=== PATIENT | female | born 1965 | race Caucasian/White ===

== ENCOUNTER 2016-08-09 18:20 | Inpatient (IN) | payer OTHER ==
--- NOTE | ~2016-08-09 | DS ---
Discharge Summary [address] [place]. [address] NAME: BRITTNY PISANO : 67 STATUS : DIS IN PAT#: [id number] AGE: 51 ADM/REG DATE : 08/09/16 MR#: [id number] REPORT SERV DATE: 08/12/16 DICTATED BY: PRECIOUS MAIN DATE: 08/11/16 REPORT STATUS : Draft TRANSCRIBED BY: MODL DATE: 08/11/16 ADMISSION DATE: 08/09/2016 DISCHARGE DATE: 08/11/2016 DISCHARGE DIAGNOSES: 1. Non-small cell lung cancer, new diagnosis. 2. Left pleural effusion. 3. Chronic obstructive pulmonary disease. 4. Possible postobstructive pneumonitis. 5. Tobacco dependence. 6. Chest pain, pleuritic with pain controlled with oral medications. 7. Anxiety due to new diagnosis. CONSULTATIONS: 1. Pulmonology, Dr. Marquis Way. 2. Oncology, Dr. Leonard Padgett. PROCEDURES AND IMAGIN. CT of the chest, 08/06/2016. Impression: Bulky mediastinal and hilar adenopathy with left upper lobe collapse with obstruction from the left upper lobe bronchus consistent with primary lung cancer. Recommend Interventional Pulmonology for bronchoscopy and/or EBUS. Small to moderate left pleural effusion with left pleural enhancement suspicious for pleural metastatic disease. 2. Chest x-ray, 08/10/2016. Impression: Stable appearance of chest compared to previous with left upper lobe consolidation/mass. No evidence of pneumothorax or pneumomediastinum after endobronchial ultrasound. 3. EGD/Thoracentesis, 08/10/[address] Impression: Positive for non-small cell lung cancer. Left thoracentesis, 1100 mL of serosanguineous fluid removed. Not a stick candidate. HOSPITAL COURSE: Please refer to history and physical dictated on 08/06/2016 by Hospitalist Services. This patient is a 51-year-old female with history of heavy smoking likely COPD, was evaluated in the emergency room for complaints of chest pain. The patient's pain was pleuritic in nature. Additional imaging was obtained which noted possible mass. The patient did undergo above procedure which was noted removing 1100 mL of serosanguineous fluid. The patient was then consulted to see Oncology. The patient was evaluated by Oncology and will be followed up outpatient. PET-CT within three days. The patient will follow up with Dr. Dunlap within seven days. MRI of the brain was obtained prior to discharge. The patient has had complaints of anxiety, given Xanax in the hospital, but will be discharged home with Ativan 0.5 mg one every 12 hours as needed p.r.n. The patient will also be given hydrocodone p.r.n. for pain. DISCHARGE MEDICATIONS: 1. Multivitamin over the counter. Discharge Summary [address] [address] NAME: BRITTNY PISANO : 67 STATUS : DIS IN PAT#: [id number] AGE: 51 ADM/REG DATE : 08/09/16 MR#: [id number] REPORT SERV DATE: 08/12/16 DICTATED BY: PRECIOUS MAIN DATE: 08/11/16 REPORT STATUS : Draft TRANSCRIBED BY: DANTE DATE: 08/11/16 2. Nicotine transdermal patch over the counter. 3. Acetaminophen 325 mg over the counter. 4. Colace 100 mg one twice daily p.r.n. over the counter. 5. Ativan 0.5 mg p.o. every 12 hours p.r.n. for anxiety, #10. 6. Hydrocodone 10/325 mg one p.o. every 8 hours p.r.n. for pain. 7. Augmentin 875 mg one p.o. every 12 hours x2 days. This patient is being discharged home in hemodynamically stable condition. The pain is controlled with the above medications. She will follow up with Oncology to review MRI of the brain. This discharge took greater than 30 minutes. /DANTE Precious Main NP / [id number] CC: Paul Moses MD
--- NOTE | ~2016-08-09 | EGD ---
EGD REPORT [facility] [address] [address] NAME: CAROLYNE RUIZ : 67 STATUS : ADM IN PAT#: [id number] AGE: 51 ADM/REG DATE : 08/09/16 MR#: [id number] REPORT SERV DATE: 08/10/16 DICTATED BY: ZULMA MCCULLOUGH DATE: 08/10/16 REPORT STATUS : Draft [facility]: [facility] DATE: 08/10/16 Pulmonology Patient Name: Carolyne Ruiz Procedure Date: 08/10/2016 9:51 AM Date of : 1965 Attending MD: DOROTHEA MCCULLOUGH MD Procedure Date No Time: 08/10/2016 Procedure: EBUS and thoracentesis Indications: Left pleural effusion, FITO obstruction vs mucus plugging or endobronchial tumor. Weight loss, Tobacco Abuse Providers: DOROTHEA MCCULLOUGH MD Referring MD: JENNIFER ALONZO MD Medicines: Lidocaine 2% 20 mL Complications: No immediate complications Procedure: Pre-Anesthesia Assessment: - ASA Grade Assessment: III - A patient with severe systemic disease. - A History and Physical has been performed. Patient meds and allergies have been reviewed. The risks and benefits of the procedure and the sedation options and risks were discussed with the patient. All questions were answered and informed consent was obtained. Patient identification and proposed procedure were verified prior to the procedure by the physician and the nurse in the pre-procedure area in the procedure room. Mental Status Examination: alert and oriented. Airway Examination: normal oropharyngeal airway. Respiratory Examination: poor air movement and decreased breathe sounds at right base, but otherwise clear. CV Examination: normal and RRR, no murmurs, no S3 or S4. ASA Grade Assessment: IV - A patient with severe systemic disease that is a constant threat to life. After reviewing the risks and benefits, the patient was deemed in satisfactory condition to undergo the procedure. The anesthesia plan was to use general anesthesia. Immediately prior to administration of medications, the patient was re-assessed for adequacy to receive sedatives. The heart rate, respiratory rate, oxygen saturations, blood pressure, adequacy of pulmonary ventilation, and response to care were monitored throughout the procedure. The physical status of the patient was re-assessed after the procedure. After obtaining informed consent, the Bronchoscope was introduced through the mouth, via the endotracheal tube (the patient was intubated for the procedure) and EGD REPORT [id number] [facility] [place]. [address] NAME: CAROLYNE RUIZ : 67 STATUS : ADM IN [facility]#: [id number] AGE: 51 ADM/REG DATE : 08/09/16 MR#: [id number] REPORT SERV DATE: 08/10/16 DICTATED BY: ZULMA MCCULLOUGH DATE: 08/10/16 REPORT STATUS : Draft TRANSCRIBED BY: [facility] DATE: 08/10/16 advanced to the tracheobronchial tree. the Bronchoscope was introduced through the mouth, via the endotracheal tube (the patient was intubated for the procedure) and advanced to the tracheobronchial tree. The procedure was accomplished without difficulty. The patient tolerated the procedure well. Findings: Ultrasound Guided Left thoracentesis The patient was placed in the appropriate position. Ultrasound survey of the left chest was performed with identification of pleural fluid and surrounding structures including the diaphragm and lung tissue. Ultrasound image interpretation: The depth to the chest wall is approximately 2 cms. The depth of the pocket is approximately 9 cms. Ultrasound images were permanently documented. The site of entry was marked using ultrasound guidance. After donning cap, mask, sterile gown and gloves, the patient was prepped with chlorhexadine and drapped. 10 ccs of 2% lidocaine with epinephrine 1:100,000 was used to numb the region. A finder needle was then used to locate fluid with aspiration of serous fluid. A small incision was performed at insertion site and a temporary 8 Danish pleural catheter was inserted over a needle. The catheter was attached to a suction device (vacuum bottle) and 1100 mls of serosanguinous fluid was removed. EBUS Bronchoscopy The endotracheal tube is in good position. The visualized portion of the trachea is of normal caliber. The gregory is sharp. The tracheobronchial tree was examined to at least the first subsegmental level. Extrinsic and intrinsic invasion of the distal left mainstem. Unable to stent this location due to anatomic restrictions. EBUS TBNA of lymph node level 11R x 4 passes for cytology EBUS TBNA of lymph node level 7 x 4 passes for cytology EBUS TBNA of left lung mass x 6 passes for cytology Brushings were obtained in the left mainstem bronchus of the lung and sent for routine cytology. One sample was obtained. Bronchoalveolar lavage was performed in the left upper lobe of the lung and sent for routine cytology. 60 mL of fluid were instilled. 20 mL were returned. The return was blood-tinged and cellular. An endobronchial biopsy was performed in the left mainstem bronchus of the lung using a forceps and sent for histopathology examination. One sample was obtained. The FiO2 was then lowered to less than 40% and argon plasma coagulation therapy (0.8 L/min, 15 Blanca) was performed for destruction of tumor tissue at the distal left mainstem and hemostasis. Impression: Rapid On-Site Evaluation (RAOUL): Preliminary cytology is POSITIVE for NON SMALL CELL LUNG CANCER (final results are pending). Left thoracentesis: 1100 mls of serosanguinous fluid EGD REPORT [address] [address] NAME: CAROLYNE RUIZ : 67 STATUS : ADM IN [facility]#: [id number] AGE: 51 ADM/REG DATE : 08/09/16 MR#: [id number] REPORT SERV DATE: 08/10/16 DICTATED BY: ZULMA MCCULLOUGH DATE: 08/10/16 REPORT STATUS : Draft TRANSCRIBED BY: [employer] DATE: 08/10/16 was removed. Not a stent candidate. Recommendation: - Await test results. - Chest X-ray post-procedure. - Follow up with Pulmonary team tomorrow - Consult Med Onc - MRI of the brain with and without - Outpatient PET CT - If pleural effusion rapidly reoccurs and she has metastatic disease, she is an appropriate pleurX catheter patient. - Nurse Navigator - [employer] [facility] [employer] Attending Participation: I personally performed the entire procedure. DOROTHEA MCCULLOUGH MD 08/10/2016 10:48 AM This report has been signed electronically. Number of Addenda: 0 Note Initiated On: 08/10/2016 9:51 AM [address] [address]
[~2016-08-09 18:20] MED LIST: *DENIES; LORTAB 5 PO; METPAKSF PO
[2016-08-10 05:10] LABS: BASOPHILS 0.1 %; BASOPHILS ABSOLUTE 0.01 10/3/uL (0.0-0.16); EOSINOPHILS 1.3 %; EOSINOPHILS ABSOLUTE 0.09 10/3/uL (0.0-0.53); HEMOGLOBIN 11.3 g/dL (12.0-16.0); IMMATURE GRANULOCYTES 0.1 %; IMMATURE GRANULOCYTES ABSOLUTE 0.01 10/3/uL (0.0-0.11); LYMPHOCYTES 25.1 %; LYMPHOCYTES ABSOLUTE 1.78 10/3/uL (0.67-4.30); MEAN CORPUS HGB CONC 33.2 g/dL (32.0-36.0); MEAN CORPUSCULAR HEMOGLOB 29.7 pg (26.0-34.0); MEAN CORPUSCULAR VOLUME 89.2 fL (80-100); MEAN PLATELET VOLUME 9.2 fL (9.2-13.0); MONOCYTES 8.6 %; MONOCYTES ABSOLUTE 0.61 10/3/uL (0.21-1.20); NEUTROPHILS 64.8 %; NEUTROPHILS ABSOLUTE 4.58 10/3/uL (2.02-8.40); PLATELET COUNT 230 10/3/uL (150-400); RBC DISTRIBUTION WIDTH 13.6 % (12.0-16.0); RED CELL COUNT 3.81 10/6/uL (4.0-5.6); WHITE BLOOD CELLS 7.1 10/3/uL (4.5-10.5)
[2016-08-10 05:15] LABS: INTERNATIONAL NORMAL RATI 1.2 UNITS (-); PARTIAL THROMBO TIME 34.4 SEC (22.5-37.2); PROTIME (NOT ORD) 15.5 SEC (12.0-14.5)
[2016-08-10 05:25] LABS: MANUAL DIFF NO %
[2016-08-10 05:27] LABS: ALBUMIN 2.6 G/DL (3.5-5.0); CALCIUM, SERUM 8.1 MG/DL (8.5-10.4); CHLORIDE, SERUM 109 MMOL/L (96-112); CO2 (CARBON DIOXIDE) 25 MMOL/L (24-34); CREATININE 0.72 MG/DL (0.55-1.02); GFR AFRICAN AMERICAN 113 ML/MIN (>=60); GFR NON AFRICAN AMERICAN 98 ML/MIN (>=60); GLUCOSE, SERUM 94 MG/DL (60-99); PHOSPHORUS, SERUM 3.5 MG/DL (2.5-4.5); POTASSIUM, SERUM 3.9 MMOL/L (3.5-5.3); SODIUM, SERUM 143 MMOL/L (135-148)
[2016-08-10 05:31] LABS: BUN (BLOOD UREA NITROGEN) 6 MG/DL (6-23)
[2016-08-10 11:46] LABS: INSTRUMENT SERIAL # 35151; OPERATOR ID 14472; SAMPLE PLR; pH 7.44 (7.37-7.43)
[2016-08-10 13:24] LABS: BD FL SOURCE (NOT ORD) LUL
[2016-08-10 13:34] LABS: GLUCOSE BODY FL (NOT ORD) 78 MG/DL; LDH BODY FLUID (NOT ORD) 579 U/L; PROTEIN BODY FLUID 3.4 G/DL
[2016-08-10 13:38] LABS: BF TOTAL CELL CT (NOT ORD 984 /MM3; BODY FLUID RBC (NOT ORD) 4950 /MM3
[2016-08-10 14:07] LABS: BD FL SOURCE (NOT ORD) BAL; BODY FLUID RBC (NOT ORD) 112000 /MM3
[2016-08-10 14:11] LABS: BF BASO (NOT OF) 0 %
[2016-08-10 14:12] LABS: BD FL LYMPH (NOT ORD) 71 %; BODY FLUID SEG (NOT ORD) 0 %
[2016-08-10 14:13] LABS: BF LARGE MONONUCLEAR 29 %; BODY FLUID EOS (NOT ORD) 0 %
[2016-08-10 14:15] LABS: BD FL LYMPH (NOT ORD) 2 %; BF TOTAL CELL CT (NOT ORD 308 /MM3; BODY FLUID EOS (NOT ORD) 4 %; BODY FLUID SEG (NOT ORD) 63 %
[2016-08-10 14:16] LABS: BF LARGE MONONUCLEAR 27 %
[2016-08-10 16:30] LABS: BD FL SOURCE (NOT ORD) LEFT PLEURAL FLUID
[2016-08-11] MEDS ORDERED: HABIT21 TOP (14:44)
[2016-08-11] MEDS ORDERED: MUCINEX1200 MG PO (14:44)
[2016-08-11] MEDS ORDERED: MULTIPLE VIT PO (14:44)
[2016-08-11] MEDS ORDERED: DSS PO (14:45)
[2016-08-11] MEDS ORDERED: T PO (14:45)
[2016-08-11] MEDS ORDERED: ATV.5 PO (14:46)
[2016-08-11] MEDS ORDERED: NORCO1 TAB PO (14:46)
[2016-08-11] MEDS ORDERED: AUG875 PO (14:47)
[2016-09-24] MEDS ORDERED: DSS PO (02:53)
== END 2016-08-11 16:51 | disposition home or self-care (01) | DRG 166 ==
LOC: 4EA 18:20
PROVIDERS: Internal Medicine
PROC: 0W9B3ZZ Drainage of Left Pleural Cavity, Percutaneous Approach (ICD-10-PCS; principal; 2016-08-09)
PROC: 07B74ZX Excision of Thorax Lymphatic, Percutaneous Endoscopic Approach, Diagnostic (ICD-10-PCS; 2016-08-09)
DX: C34.90 Malignant neoplasm of unspecified part of unspecified bronchus or lung (principal); J18.9 Pneumonia, unspecified organism; J90 Pleural effusion, not elsewhere classified; J44.9 Chronic obstructive pulmonary disease, unspecified; F17.210 Nicotine dependence, cigarettes, uncomplicated; F41.9 Anxiety disorder, unspecified
CPT/HCPCS: 70553; 71010; 80069; 82805; 82945; 83615; 83986; 84157; 85025; 85610; 85730; 87015; 87070; 87102; 87116; 87205; 88112; 88172; 88173; 88305; 88333; 89051; 93005; 94640; A9270-GY; A9577; C1725; J2250; J2405; J2543; J2710; J3010

== ENCOUNTER 2016-08-25 15:42 | Inpatient (IN) | payer OTHER ==
--- NOTE | ~2016-08-25 | HP ---
History And Physical [address] [place]. [address] NAME: BRITTNY PISANO : 67 STATUS : ADM IN [facility]#: [id number] AGE: 51 ADM/REG DATE : 08/25/16 MR#: [id number] REPORT SERV DATE: 08/25/16 DICTATED BY: JASON LOZANO DATE: 08/25/16 REPORT STATUS : Draft TRANSCRIBED BY: MODL DATE: 08/25/16 DATE OF ADMISSION: 08/25/2016 CHIEF COMPLAINT: A 51-year-old female with recently diagnosed metastatic lung cancer, now presenting with shortness of breath. HISTORY OF PRESENT ILLNESS: The patient's history was obtained through careful interview with the patient and daughter coupled with review of [facility] and [facility] medical records. The patient was diagnosed with metastatic lung cancer to mediastinal lymph nodes and to the pleural space in July 2016, followed by Dr. Dunlap. When she was first diagnosed, she also had a partial collapse of her left lung related to the cancer with pleural effusion that had to be drained with thoracentesis. Over the last week, the patient has had increasing shortness of breath, but over these last four days, she has been unable to lay down or sleep because of increasing and extreme orthopnea. She also suffers from dyspnea on exertion and a cough that is productive of a mild clear sputum. One of her main complaints has been extreme increasing back pain, felt in the left base of her lung in the back. She states "it is like a knife punching me in the back," 10/10 in severity, that is exacerbated by any kind of breathing or coughing at all. She has had no sinus drainage. She has had some lightheadedness and nausea, but no vomiting. No fevers or chills. No abdominal pain. No change of bowel or bladder habit. REVIEW OF SYSTEMS: Otherwise, a 14-point review of systems was obtained was negative. PAST MEDICAL HISTORY: 1. Lung cancer, diagnosed in July 2016, non-small cell with mediastinal lymphadenopathy and pleural space disease, followed by Dr. Dunlap. 2. Left pleural effusion, seen by Dr. Way. 3. COPD. 4. Anxiety. 5. Rectal polyps, seen by Dr. Leonard. 6. Nephrolithiasis. PAST SURGICAL HISTORY: 1. Cholecystectomy. 2. Tubal ligation. 3. Left ankle surgery. History And Physical [address] [place]. [address] NAME: BRITTNY PISANO : [birth year] STATUS : ADM IN PAT#: [id number] AGE: 51 ADM/REG DATE : 08/25/16 MR#: [id number] REPORT SERV DATE: 08/25/16 DICTATED BY: JASON LOZANO DATE: 08/25/16 REPORT STATUS : Draft TRANSCRIBED BY: DANTE DATE: 08/25/16 ALLERGIES: TRAMADOL. SOCIAL HISTORY: The patient is a smoker. No alcohol abuse. Lives with daughter, , has a 31-year-old son. FAMILY HISTORY: Mother of melanoma. Father of unknown cancer. Brother with heart disease. CURRENT MEDICATIONS: Include albuterol inhaler, folic acid, Roxicodone 10 mg every six hours as needed, and stool softener. PHYSICAL EXAMINATION: VITAL SIGNS: Temperature 98.0, pulse 102, blood pressure 172/87, respiratory rate 18, and O2 saturation 80% on room air and 94% on 4 liters nasal cannula. GENERAL: An ill-appearing female, in evidence of distress secondary to chest pain and shortness of breath. HEENT: Pupils are equal, round, and reactive to light. No conjunctival pallor. No scleral icterus. Nares are patent. Oropharynx is clear of obstruction. Moist mucous membranes. NECK: Trachea midline. No thyromegaly. LYMPH: No cervical lymphadenopathy. No supraclavicular lymphadenopathy. RESPIRATORY: The patient has absent breath sounds in the left lung with dullness to percussion up to the top of the lung consistent with a very large pleural effusion. She has scattered expiratory wheezes, prolonged expiratory phase, and a mildly labored respiratory effort, but is in no means distressed at this moment. CARDIOVASCULAR: Tachycardic. Regular rhythm. No murmurs, rubs, or gallops. No current extremity edema is appreciated. ABDOMEN: Soft, nontender, and nondistended. Normal bowel sounds auscultated throughout. No hepatosplenomegaly. DERMATOLOGICAL: Warm and dry extremities. No pallor. No cyanosis. PSYCHIATRIC: Normal affect. Good mood. Alert and oriented x3. LABORATORY DATA: White blood cell count 9.9, hemoglobin 12, hematocrit 36, and platelets 314. Sodium 134, potassium 4.4, chloride 95, bicarb 34, BUN 12, creatinine 0.78, and glucose 138. STUDIES: 1. Chest x-ray by my own evaluation shows an essential whiteout of the left lung with large left pleural effusion. There is also increasing chronic interstitial lung disease-like changes on the right side. 2. EKG by my own evaluation shows sinus rhythm, 98 beats per minute. No other major abnormalities. ASSESSMENT AND PLAN: 1. Hypoxic respiratory failure with saturating 80% on room air. Provide supportive care. 2. Large left pleural effusion from malignancy. Consult Dr. Way for PleurX catheter. 3. Lung cancer. Consult Dr. Dunlap, oncologist. History And Physical [address] [address] NAME: BRITTNY PISANO : 67 STATUS : ADM IN [facility]#: [id number] AGE: 51 ADM/REG DATE : 08/25/16 MR#: [id number] REPORT SERV DATE: 08/25/16 DICTATED BY: JASON LOZANO DATE: 08/25/16 REPORT STATUS : Draft TRANSCRIBED BY: DANTE DATE: 08/25/16 4. Chronic obstructive pulmonary disease. P.o. prednisone, Duo nebulizers. Counseled tobacco abstinence. 5. Extreme pleurisy. Place on IV Dilaudid pain management. KPL/MODL Jason Lozano M.D. / [id number] CC: MD Marquis Niño M.D. Benjamin R Nadeau, MD
--- NOTE | ~2016-08-25 | EGD ---
EGD REPORT [facility] [address] [address] NAME: CAROLYNE RUIZ : 67 STATUS : ADM IN PAT#: [id number] AGE: 51 ADM/REG DATE : 08/25/16 MR#: [id number] REPORT SERV DATE: 08/27/16 DICTATED BY: ZULMA MCCULLOUGH DATE: 08/27/16 REPORT STATUS : Draft [facility]: [facility] DATE: 08/27/16 Pulmonology Patient Name: Carolyne Ruiz Procedure Date: 08/27/2016 9:50 AM Date of : 1965 Attending MD: DOROTHEA MCCULLOUGH MD Procedure Date No Time: 08/27/2016 Procedure: Indwelling Tunnelled Cuffed Pleural Catheter Placement Indications: Left pleural effusion Providers: DOROTHEA MCCULLOUGH MD Referring MD: LEONARD MENDOZA Medicines: Intradermal lidocaine 2% with epinephrine 1:100,000 20 mls. See anesthesia record Complications: No immediate complications Procedure: Pre-Anesthesia Assessment: - A History and Physical has been performed. Patient meds and allergies have been reviewed. The risks and benefits of the procedure and the sedation options and risks were discussed with the patient. All questions were answered and informed consent was obtained. Patient identification and proposed procedure were verified prior to the procedure by the physician and the nurse in the pre-procedure area in the procedure room. Mental Status Examination: normal. Airway Examination: normal oropharyngeal airway. Respiratory Examination: decreased breathe sounds at left base, but otherwise clear. CV Examination: normal and RRR, no murmurs, no S3 or S4. ASA Grade Assessment: IV - A patient with severe systemic disease that is a constant threat to life. After reviewing the risks and benefits, the patient was deemed in satisfactory condition to undergo the procedure. The anesthesia plan was to use monitored anesthesia care (MAC). Immediately prior to administration of medications, the patient was re-assessed for adequacy to receive sedatives. The heart rate, respiratory rate, oxygen saturations, blood pressure, adequacy of pulmonary ventilation, and response to care were monitored throughout the procedure. The physical status of the patient was re-assessed after the procedure. Findings: After consent was obtained, a time out was performed. The patient was placed in the right lateral decubitus position with the ipsilateral arm above the patient's head. The patient was sedated by anesthesia and ultrasound survey was performed with identification of pleural fluid and surrounding structures including the diaphragm and lung tissue. EGD REPORT [address] [address] NAME: CAROLYNE RUIZ : 67 STATUS : ADM IN [facility]#: [id number] AGE: 51 ADM/REG DATE : 08/25/16 MR#: [id number] REPORT SERV DATE: 08/27/16 DICTATED BY: ZULMA MCCULLOUGH DATE: 08/27/16 REPORT STATUS : Draft TRANSCRIBED BY: Fresh [facility] DATE: 08/27/16 Ultrasound image interpretation: The depth to the chest wall is approximately 2 cms. The depth of the pocket is approximately 9 cms. Ultrasound images were permanently documented. The site of entry was marked using ultrasound guidance. After donning cap, mask, sterile gown and gloves, the patient was prepped with chlorhexadine and drapped. 10 ccs of 2% lidocaine with epinephrine 1:100,000 was used to numb the region. A finder needle was then used to locate fluid with aspiration of serous fluid. An angiocath sheath was inserted followed by guidewire placement. A small incision was performed at insertion site of the guide wire to expose the subcutaneous tissue. Then an additional 20 ccs of 2% lidocaine with epinephrine was used to numb the subcutanous tract and second incision site. A similar second incision was made approximately 5 cm below the initial incision. The pleural catheter was tunnelled in the usual manner. The trocar was inserted over the wire and the pleural catheter placed into pleural space. 1800 ccs of serous fluid was drained. The catheter was secured using 3.0 silk and a tegaderm dressing was applied. Impression: Left pleurX placed 1800 ccs of serous fluid was drained. Recommendation: 1. Post-procedure stat portable chest x-ray 2. Home health consultation 3. Case management consultation for discharge planning 4. [facility] nurse navigator consultation 5. Follow up with me in 10 to 14 days to remove stitches and inspect site. Attending Participation: I personally performed the entire procedure. DOROTHEA MCCULLOUGH MD 08/27/2016 2:09 PM This report has been signed electronically. Number of Addenda: 0 Note Initiated On: 08/27/2016 9:50 AM [address] [address]
--- NOTE | ~2016-08-25 | CN ---
Consultation Report [facility] [address] [place]. [address] NAME: CAROLYNE RUIZ : 67 STATUS : ADM IN PAT#: [id number] AGE: 51 ADM/REG DATE : 08/25/16 MR#: [id number] REPORT SERV DATE: 08/26/16 DICTATED BY: YOU RUTLEDGE DATE: 08/26/16 REPORT STATUS : Draft TRANSCRIBED BY: MODL DATE: 08/26/16 DATE OF CONSULTATION: 08/26/2016 CHIEF COMPLAINT: Shortness of breath and pleuritic pain in a patient with a left-sided pleural effusion. HISTORY OF PRESENT ILLNESS: Ms. Carolyne Ruiz is a pleasant 51-year-old white female with a past medical history significant for non-small cell lung cancer-adenocarcinoma, COPD, and probable malignant left pleural effusion, who presents to [facility] with complaints of worsening shortness of breath and pleuritic pain. It should be noted that Ms. Ruiz was hospitalized as recently as 08/11 when she was diagnosed with lung cancer. Ms. Ruiz has been seen by Dr. Marquis Way of Pulmonary Service. During this hospitalization, she was diagnosed with non-small cell lung cancer. The patient does not usually require supplemental oxygen. She is on no pulmonary medications. She continues to smoke cigarettes. She largely denies symptomatology related to obstructive sleep apnea. Her exercise tolerance has been quite limited as of late. Again, Ms. Ruiz was seen as recently as 08/10 when she underwent a procedure by Dr. Way. She had bronchoscopy with endobronchial ultrasound sampling, which demonstrated non small cell lung cancer. Final path was later resulted in adenocarcinoma. At the same time of the procedure, she also had a left thoracentesis that produced 1100 mL of serosanguineous fluid. The patient did eventually improve and transitioned home. She has been followed as an outpatient by Dr. Lucian Dunlap. She had undergone specific testing for EGFR as well as ALK mutations. She has also had PD-L1 workup. She has undergone a PET scan on 08/17/2016, which suggests left pleural metastasis. More recently, she has developed worsening shortness of breath and concomitant left-sided pleuritic pain. For the aforementioned reasons, she has been referred to the Pulmonary Service for further assessment. Upon arrival to the emergency room, she was noted to be hypertensive with a blood pressure of 172 systolic. She had a room air saturation of 80%. She was placed on supplemental oxygen with good improvement. Her initial blood work was fairly unremarkable with a white blood cell count of 9900 and preserved renal function. She did undergo a chest x-ray, which revealed a recurrent left pleural effusion. Currently, the patient's main pulmonary complaint is shortness of breath. This is worse on exertion and relieved by rest. She does have concomitant left-sided pleuritic pain. She denies any productive cough or purulent sputum. She denies any wheezing in her chest. She denies past pneumonias. She does have a diagnosis of COPD. The patient currently denies any murmurs, angina, or palpitations. She denies any orthopnea or paroxysmal nocturnal dyspnea. In regard to constitutional symptoms, she currently denies fever, chills, nausea, vomiting, Consultation Report [address] [place]. [address] NAME: CAROLYNE RUIZ : 67 STATUS : ADM IN [facility]#: [id number] AGE: 51 ADM/REG DATE : 08/25/16 MR#: [id number] REPORT SERV DATE: 08/26/16 DICTATED BY: YOU RUTLEDGE DATE: 08/26/16 REPORT STATUS : Draft TRANSCRIBED BY: DANTE DATE: 08/26/16 abdominal pain, or edema. PAST MEDICAL HISTORY: 1. Non-small cell lung espwfl-[id number]-[id number] 4. 2. COPD. 3. Tobacco dependency. 4. Anxiety. 5. Rectal polyps. 6. Nephrolithiasis. PAST SURGICAL HISTORY: 1. Cholecystectomy. 2. Tubal ligation. 3. Left ankle surgery. FAMILY HISTORY: The patient states her mother of melanoma. Her father had a cancer as well. She denies any known lung disease. SOCIAL HISTORY: The patient is not . She does have a daughter as well as a son. TOBACCO/ALCOHOL: As previously mentioned, the patient continues to smoke cigarettes up until the time of presentation. MEDICATIONS: 1. Albuterol. 2. Folic acid 1 mg. 3. Oxycodone 10 mg. ALLERGIES: PATIENT HAS A KNOWN ALLERGY TO TRAMADOL. REVIEW OF SYSTEMS: Complete review of systems was performed with pertinent positives and negatives contained within the body of the HPI. PHYSICAL EXAMINATION: VITAL SIGNS: Blood pressure is 134/89, heart rate is 93, T-max is 97.4, respiratory rate is 20, SpO2 is 98% on 2 L. GENERAL: The patient is a pleasant, well-nourished/well-developed female who is not currently exhibiting any signs of acute distress. Skin: Skin with appropriate texture and turgor. No rashes, lesions, or ulcers. Nails are clear without cyanosis or clubbing. HEENT: Head: Skull is normocephalic/atraumatic. Facies symmetric. No masses or lesions. Eyes: Sclera anicteric, conjunctiva pink without exudates. Extra ocular movements intact. Pupils are equal, round, reactive to light. Ears: Auricles and tragus without pain to palpation. Hearing is grossly intact. Consultation Report [place] [id number] [facility] [place]. [address] NAME: CAROLYNE RUIZ : 67 STATUS : ADM IN [facility]#: [id number] AGE: 51 ADM/REG DATE : 08/25/16 MR#: [id number] REPORT SERV DATE: 08/26/16 DICTATED BY: YOU RUTLEDGE DATE: 08/26/16 REPORT STATUS : Draft TRANSCRIBED BY: DANTE DATE: 08/26/16 Nose: Bilateral nasal patency. Sinuses without tenderness upon palpation. Throat: Dentition. Lips, oral mucosa, tongue, palate, and pharynx pink and moist without lesions. Uvula rises equally on phonation. Tongue midline without deviation. NECK: Neck supple. Trachea midline. No cervical lymphadenopathy appreciated. THORAX/LUNGS: Absent breath sounds in the left chest, dullness to percussion throughout on the left. CARDIOVASCULAR: Regular rate and rhythm. No murmurs, rubs, or gallops. Anterior chest without thrills, heaves, or lifts. ABDOMEN: Soft. Non-distended, non-tender. Active bowel sounds in all four quadrants. No hepatosplenomegaly noted. PERIPHERAL VASCULAR: No edema. No varicosities, stasis changes, open sores, ulcerations, or phlebitis. 2+ pulses in radial and dorsalis pedis. MUSCULOSKELETAL: Full AROM and PROM in all joints. No evidence of erythema, deformity, or crepitus. NEUROLOGIC: CN II - XII grossly intact. Good muscle bulk and tone bilaterally. Strength 5/5 throughout. PSYCHIATRIC: Patient demonstrates good judgment and insight. Pt is A&O x 3. ACCESSORY DATA: Reveals a white blood cell count 9100. PTT and PT/INR are 38.6, 15.2, 1.2. Procalcitonin is 0.32. Chest x-ray reveals a large left pleural effusion. IMPRESSION: 1. Non-small cell lung cancer, adenocarcinoma-stage 4. 2. Malignant pleural effusion. 3. Chronic obstructive pulmonary disease. 4. Tobacco dependency/complicated. PLAN: 1. The patient is being followed by the Oncology Service. 2. In regard to the patient's malignant pleural effusion, we will plan for PleurX catheter placement tomorrow under the care of Dr. Way. We will also sample this fluid for further tissue should Oncology pursue further molecular testing. 3. In regard to the patient's COPD, she has been placed on appropriate regimen of prednisone and nebulized medications. 4. In regard to the patient's tobacco dependency, we have counseled her greater than 10 minutes on the benefits of smoking cessation. The aforementioned impression and plan have been discussed with Dr. Dowd who will follow further recommendations. We thank you for this consult and look forward to participating in the care of Dr. Carolyne Ruiz. Consultation Report [address] [address] NAME: CAROLYNE RUIZ : 67 STATUS : ADM IN [facility]#: [id number] AGE: 51 ADM/REG DATE : 08/25/16 MR#: [id number] REPORT SERV DATE: 08/26/16 DICTATED BY: YOU RUTLEDGE DATE: 08/26/16 REPORT STATUS : Draft TRANSCRIBED BY: DANTE DATE: 08/26/16 ELENO/DANTE You Rutledge PA-C / [id number] CC: Ty Monterroso M.D. NO PCP
--- NOTE | ~2016-08-25 | DS ---
Discharge Summary [facility] [address] [place]. [address] NAME: BRITTNY PISANO : 67 STATUS : DIS IN PAT#: [id number] AGE: 51 ADM/REG DATE : 08/25/16 MR#: [id number] REPORT SERV DATE: 08/29/16 DICTATED BY: ANDREW ROBLEDO DATE: 08/28/16 REPORT STATUS : Draft TRANSCRIBED BY: MODL DATE: 08/28/16 ADMISSION DATE: 08/25/2016 DISCHARGE DATE: 08/28/2016 DISCHARGE DIAGNOSES: 1. Acute hypoxic respiratory failure. 2. Left pleural effusion that is malignant, status post a PleurX catheter placement that was performed on 08/27/2016. 3. Non-small cell lung cancer adenocarcinoma, stage IV. 4. Pleurisy and acute pain. 5. Tobacco use and history of chronic obstructive pulmonary disease. 6. Anxiety. 7. Sinus tachycardia. DISCHARGE MEDICATIONS: As follows: Folic acid 1 mg daily, Wellbutrin sustained release 150 mg p.o. twice a day, Spiriva 18 mcg one inhaled daily, metoprolol 12.5 mg p.o. twice a day, oxycodone 10 mg every six hours p.r.n. for pain, albuterol nebulizers every four hours p.r.n. for shortness of breath, stool softener daily, Dulera 200/5 mcg two puffs inhaled twice a day, and MS Contin 10 mg daily. HISTORY OF PRESENT ILLNESS: Pleasant, but unfortunate 51-year-old, white female, who presented to [facility] Emergency Room with complaints of progressive shortness of breath. Please see the initial H and P of Dr. Dale Hawkins. This patient was admitted to the hospitalist service for further evaluation and treatment. She was given aggressive nebulizer and oxygen therapy, and aggressive pain control. Lab work was ordered and followed. CONSULTS: During this admission include: [facility], Dr. Lucian Dunlap; pulmonology, Dr. Kris Ham and Dr. Way. PROCEDURES AND IMAGING: During this admission include: The left PleurX catheter placement as described, placed on 08/27/2016. HOSPITAL COURSE: I began seeing the patient on 08/26/2016, where she was still quite short of breath and dyspneic, but had improved with nebulizer treatments and oxygen therapy, and also steroids. I discussed at length with the patient, the need to stop smoking and to keep her followups with [facility] for initiation of chemotherapy. She agreed to try Wellbutrin to help her quit smoking, and this was initiated. She underwent the above described PleurX catheter placement, recovered well from that, and improved symptomatically, although she did continue to require oxygen. She had somewhat of a difficult disposition for approval on her PleurX drains, oxygen and home health, as she is self-pay with no insurance currently. We were able to give her two weeks of her PleurX drains. She was approved for oxygen therapy, and this will be delivered to her home, and her medicines were charitied for her as well. She has a followup with Dr. Lucian Dunlap, on Wednesday08/31/2016, and has been given the number for the nurse navigator and social media analyst through the cancer center to continue followup and need for supplies, particularly her PleurX Discharge Summary [address] [address] NAME: BRITTNY PISANO : 67 STATUS : DIS IN PAT#: [id number] AGE: 51 ADM/REG DATE : 08/25/16 MR#: [id number] REPORT SERV DATE: 08/29/16 DICTATED BY: ANDREW ROBLEDO DATE: 08/28/16 REPORT STATUS : Draft TRANSCRIBED BY: DANTE DATE: 08/28/16 drains. The patient was feeling better, was able to ambulate in the hallway, eating and drinking. Her pain was reasonably well controlled and so, she was discharged home with the above medication regimen, followup plan. She voiced agreement with the plan. Questions were answered at bedside. Please note, greater than 30 minutes were spent on this discharge, for medication teaching, followup planning, and further disposition. MILAN/DANTE Andrew Robledo NP / [id number] CC: Ty Monterroso M.D.
[~2016-08-25 15:42] MED LIST changes: +ATV.5 PO; +AUG875 PO; +DSS PO; +HABIT21 TOP; +MUCINEX1200 MG PO; +MULTIPLE VIT PO; +NORCO1 TAB PO; +T PO
[2016-08-25 16:06] LABS: BASOPHILS 0.1 %; BASOPHILS ABSOLUTE 0.01 10/3/uL (0.0-0.16); EOSINOPHILS 0.2 %; EOSINOPHILS ABSOLUTE 0.02 10/3/uL (0.0-0.53); ER CBC TAT 0 Hrs 08 Mins; HEMOGLOBIN 12.2 g/dL (12.0-16.0); IMMATURE GRANULOCYTES 0.2 %; IMMATURE GRANULOCYTES ABSOLUTE 0.02 10/3/uL (0.0-0.11); LYMPHOCYTES 9.7 %; LYMPHOCYTES ABSOLUTE 0.96 10/3/uL (0.67-4.30); MEAN CORPUS HGB CONC 33.9 g/dL (32.0-36.0); MEAN CORPUSCULAR HEMOGLOB 29.7 pg (26.0-34.0); MEAN CORPUSCULAR VOLUME 87.6 fL (80-100); MEAN PLATELET VOLUME 9.6 fL (9.2-13.0); MONOCYTES 8.4 %; MONOCYTES ABSOLUTE 0.83 10/3/uL (0.21-1.20); NEUTROPHILS 81.4 %; NEUTROPHILS ABSOLUTE 8.03 10/3/uL (2.02-8.40); RBC DISTRIBUTION WIDTH 14.2 % (12.0-16.0); RED CELL COUNT 4.11 10/6/uL (4.0-5.6); WHITE BLOOD CELLS 9.9 10/3/uL (4.5-10.5)
[2016-08-25 16:07] LABS: MANUAL DIFF NO %; PLATELET COUNT 314 10/3/uL (150-400)
[2016-08-25 16:15] LABS: INTERNATIONAL NORMAL RATI 1.2 UNITS (-); PARTIAL THROMBO TIME 32.8 SEC (22.5-37.2)
[2016-08-25 16:29] LABS: CREATININE 0.78 MG/DL (0.55-1.02); GFR AFRICAN AMERICAN 103 ML/MIN (>=60); GFR NON AFRICAN AMERICAN 89 ML/MIN (>=60); POTASSIUM, SERUM 4.4 MMOL/L (3.5-5.3); TROPONIN I <0.02 NG/ML (<0.05)
[2016-08-25 16:30] LABS: BUN (BLOOD UREA NITROGEN) 12 MG/DL (6-23); CHEST PAIN PROFILE TAT 0 Hrs 31 Mins; CHLORIDE, SERUM 95 MMOL/L (96-112); CO2 (CARBON DIOXIDE) 34 MMOL/L (24-34); GLUCOSE, SERUM 138 MG/DL (60-99); SODIUM, SERUM 134 MMOL/L (135-148)
[2016-08-25] MEDS ORDERED: FOLIC PO (18:19)
[2016-08-25] MEDS ORDERED: OXYCOD PO (18:19)
[2016-08-25] MEDS ORDERED: STOOL SOFTENER PO (18:21)
[2016-08-25] MEDS ORDERED: ALBUTEROL5 INH (18:22)
[2016-08-26 06:20] LABS: BASOPHILS 0.1 %; BASOPHILS ABSOLUTE 0.01 10/3/uL (0.0-0.16); EOSINOPHILS 0 %; HEMATOCRIT 33.8 % (36.0-48.0); HEMOGLOBIN 11.5 g/dL (12.0-16.0); IMMATURE GRANULOCYTES 0.1 %; IMMATURE GRANULOCYTES ABSOLUTE 0.01 10/3/uL (0.0-0.11); LYMPHOCYTES 6.5 %; LYMPHOCYTES ABSOLUTE 0.59 10/3/uL (0.67-4.30); MEAN CORPUSCULAR HEMOGLOB 29.9 pg (26.0-34.0); MEAN PLATELET VOLUME 9.7 fL (9.2-13.0); MONOCYTES 6.4 %; MONOCYTES ABSOLUTE 0.58 10/3/uL (0.21-1.20); NEUTROPHILS 86.9 %; NEUTROPHILS ABSOLUTE 7.91 10/3/uL (2.02-8.40); PLATELET COUNT 296 10/3/uL (150-400); RBC DISTRIBUTION WIDTH 14.2 % (12.0-16.0); RED CELL COUNT 3.84 10/6/uL (4.0-5.6); WHITE BLOOD CELLS 9.1 10/3/uL (4.5-10.5)
[2016-08-26 06:22] LABS: MANUAL DIFF NO %
[2016-08-26 06:28] LABS: PARTIAL THROMBO TIME 38.6 SEC (22.5-37.2)
[2016-08-26 06:32] LABS: INTERNATIONAL NORMAL RATI 1.2 UNITS (-); PROTIME (NOT ORD) 15.2 SEC (12.0-14.5)
[2016-08-26 06:43] LABS: A/G RATIO 0.6 (0.7-1.9); ALBUMIN 2.5 G/DL (3.5-5.0); ALKALINE PHOSPHATASE 106 U/L (45-117); BUN (BLOOD UREA NITROGEN) 12 MG/DL (6-23); CALCIUM, SERUM 8.7 MG/DL (8.5-10.4); CHLORIDE, SERUM 97 MMOL/L (96-112); CO2 (CARBON DIOXIDE) 30 MMOL/L (24-34); CREATININE 0.78 MG/DL (0.55-1.02); GFR AFRICAN AMERICAN 103 ML/MIN (>=60); GFR NON AFRICAN AMERICAN 89 ML/MIN (>=60); GLOBULIN 4.1 G/DL (2.5-4.1); GLUCOSE, SERUM 111 MG/DL (60-99); POTASSIUM, SERUM 4.7 MMOL/L (3.5-5.3); SGOT(AST) 23 U/L (5-40); SGPT(ALT) 33 U/L (5-65); SODIUM, SERUM 135 MMOL/L (135-148); TOTAL BILIRUBIN 1.4 MG/DL (0-1.2); TOTAL PROTEIN 6.6 G/DL (6.0-8.5); TROPONIN I <0.02 NG/ML (<0.05); ULTRASENSITIVE TSH 0.551 MCIU/ML (0.358-3.740)
[2016-08-26 07:17] LABS: PROCALCITONIN 0.32 ng/mL (<0.5)
[2016-08-28 05:15] LABS: BASOPHILS 0.1 %; BASOPHILS ABSOLUTE 0.01 10/3/uL (0.0-0.16); EOSINOPHILS 0.1 %; EOSINOPHILS ABSOLUTE 0.01 10/3/uL (0.0-0.53); HEMATOCRIT 33.6 % (36.0-48.0); HEMOGLOBIN 11.1 g/dL (12.0-16.0); IMMATURE GRANULOCYTES 0.2 %; IMMATURE GRANULOCYTES ABSOLUTE 0.02 10/3/uL (0.0-0.11); LYMPHOCYTES 10.6 %; LYMPHOCYTES ABSOLUTE 1.03 10/3/uL (0.67-4.30); MEAN CORPUSCULAR HEMOGLOB 29.3 pg (26.0-34.0); MEAN CORPUSCULAR VOLUME 88.7 fL (80-100); MEAN PLATELET VOLUME 9.3 fL (9.2-13.0); MONOCYTES ABSOLUTE 0.77 10/3/uL (0.21-1.20); NEUTROPHILS ABSOLUTE 7.84 10/3/uL (2.02-8.40); PLATELET COUNT 277 10/3/uL (150-400); RBC DISTRIBUTION WIDTH 14.4 % (12.0-16.0); RED CELL COUNT 3.79 10/6/uL (4.0-5.6); WHITE BLOOD CELLS 9.7 10/3/uL (4.5-10.5)
[2016-08-28 05:19] LABS: MANUAL DIFF NO %
[2016-08-28 05:27] LABS: BUN (BLOOD UREA NITROGEN) 13 MG/DL (6-23); CALCIUM, SERUM 8.6 MG/DL (8.5-10.4); CHLORIDE, SERUM 96 MMOL/L (96-112); CO2 (CARBON DIOXIDE) 31 MMOL/L (24-34); CREATININE 0.64 MG/DL (0.55-1.02); GFR AFRICAN AMERICAN 121 ML/MIN (>=60); GFR NON AFRICAN AMERICAN 104 ML/MIN (>=60); GLUCOSE, SERUM 120 MG/DL (60-99); POTASSIUM, SERUM 4.1 MMOL/L (3.5-5.3); SODIUM, SERUM 135 MMOL/L (135-148)
[2016-08-28] MEDS ORDERED: DULERA 200 MCG/13 GM INH (16:38)
[2016-08-28] MEDS ORDERED: LOP25 PO (16:38)
[2016-08-28] MEDS ORDERED: WELLSR150 PO (16:39)
[2016-08-28] MEDS ORDERED: MSCONT15 PO (16:40)
[2016-09-24] MEDS ORDERED: DSS PO (02:53)
== END 2016-08-28 18:09 | disposition home or self-care (01) | DRG 180 ==
LOC: ER 15:42 → 4SO 19:20
PROVIDERS: Emergency Medicine; Hospitalist; Internal Medicine; Nurse Practitioner Family
PROC: 0B9P30Z Drainage of Left Pleura with Drainage Device, Percutaneous Approach (ICD-10-PCS; principal; 2016-08-27 12:30)
DX: C34.82 Malignant neoplasm of overlapping sites of left bronchus and lung (principal); J96.01 Acute respiratory failure with hypoxia; J91.0 Malignant pleural effusion; C77.1 Secondary and unspecified malignant neoplasm of intrathoracic lymph nodes; J44.9 Chronic obstructive pulmonary disease, unspecified; F41.9 Anxiety disorder, unspecified; G89.3 Neoplasm related pain (acute) (chronic); Z86.010 Personal history of colon polyps; Z87.442 Personal history of urinary calculi; Z79.891 Long term (current) use of opiate analgesic; Z99.81 Dependence on supplemental oxygen; I10 Essential (primary) hypertension; Z88.8 Allergy status to other drugs, medicaments and biological substances; F17.219 Nicotine dependence, cigarettes, with unspecified nicotine-induced disorders; R00.0 Tachycardia, unspecified
CPT/HCPCS: 71010; 71020; 80048; 80053; 83735; 83880; 84145; 84443; 84484; 85025; 85610; 85730; 93005; 94640; 96374; 96375; 99285; A9270-GY; C1729; J1170; J2405; J3010